=== PATIENT | male | born 1955 | race Caucasian/White ===

== ENCOUNTER 2018-11-03 10:13 | Emergency (ER) | payer OTHER ==
--- OUTSIDE RECORDS SUMMARY | 2018-11-03 10:16 | XMS REPORT | Clinical Summary ---
:1955 Author Organization [facility] Address [address] [place] [address] Care Team Providers Name Role Phone Unavailable Primary Care Provider Unavailable Allergies Not on File Medications Not on file Active Problems Not on file Social History Tobacco Use Types Packs/Day Years Used Date Never Assessed Sex Assigned at Date Recorded Not on file Job Start Date Occupation Industry Not on file Not on file Not on file Travel History Travel Start Travel End No recent travel history available. Last Filed Vital Signs Not on file Plan of Treatment Date Type Specialty Care Team Description 11/04/2018 Office Visit Hepatology Carlotta Mario MD [id number] [place] [address] Results Not on fileafter 11/02/2017 Insurance Payer Benefit Plan / Group Subscriber ID Type Phone Address MEDICARE MEDICARE A B xxxxxxxxxxx Medicare MCR [employer]ETNA [facility] xxxxxxxxx SUPPLEMENT/INDIVIDUAL (Home) [place] [address]
--- NOTE | 2018-11-03 11:23 | ER ---
Nurse's Notes [facility] Name: Mary Young Age: 63 yrs Sex: Male : 1955 Arrival Date: 11/03/2018 Time: 10:16 Bed 3 Private MD: Diagnosis: Cardiac arrest Presentation: 11/03 10:11 Care prior to arrival: Oral intubation, CPR via thumper performed by EMS was ch defibrillated and is still in progress Placed on backboard. Medication(s) given: EPINEPHRINE X8 IV initiated. IO Oxygen administered. via AMBU bag. Compressions began prior to arrival. 10:28 Presenting complaint: EMS states: toned out for possible seizure, pt had no pulse and ch no respirations. called 911 at 0916 when pt laid down on the bed and then had a "stroke or a seizure". pt intubated, given 8 rounds of epi, 3 shocks, and is currently in asystole. 10:28 Acuity: JAE 1 iw 11:06 Method Of Arrival: EMS: [facility] 11:06 Acuity: JAE 1 11:10 Transition of care: patient was not received from another setting of care. Onset of ch symptoms was November 03, 2018 at 09:10. Triage Assessment: 10:35 General: Appears cpr in progress. Behavior is unresponsive. Pain: Unable to use pain ch scale. Patient is intubated. Patient is unresponsive. Historical: - Allergies: 10:17 Keflex; ss 10:34 Cephalexin Monohydrate; ch - Home Meds: 10:17 spironolactone 50 mg Oral tab 1 tab once daily [Active]; pantoprazole 40 mg Oral TbEC 1 ss tab once daily [Active]; bumetanide 2 mg Oral tab [Active]; montelukast oral oral [Active]; Advair Diskus Inhl [Active]; Prednisone Oral [Active]; - PMHx: 10:34 esophogeal varicies; pulmonary hypertension; liver failure; "lung issues"; ch 10:42 CHF; ch - PSHx: 10:17 Knee surgery; ss - Immunization history:: Adult Immunizations up to date. - Social history:: Smoking status: Patient/guardian denies using tobacco. Screenin:11 Abuse screen: Denies threats or abuse. Denies injuries from another. Nutritional ch screening: No deficits noted. 10:11 Tuberculosis screening: No symptoms or risk factors identified. Fall Risk None ch identified. Assessment: 10:11 CPR assessment: unresponsive, no respiratory effort, intubated, Ambu ventilation, ch cyanotic, pulses absent w/ compressions. Cardiac rhythm is asystole. 10:12 Respiratory: Airway is patent Respiratory pattern is symmetrical, PT IS INTUBATED, ch CLEAR LUNG SOUNDS BILATERALLY, NO RESISTANCE WITH BAGGING. GI: Abdomen is round obese. : PT HAS URINATED AND DEFECATED ON HIMSELF. Derm: Skin has skin tears on PT HAS MULTIPLE SKIN TEARS TO JON ARMS, CHEST, AND FEW ON LEGS. STATES PT SKIN IS VERY SENSITIVE Skin is clammy, Skin is dusky, pale. 10:12 General: Appears UNRESPONSIVE, CPR IN PROGRESS. . Musculoskeletal: PT HAS NO ch SPONTANEOUS MOVEMENT. 10:16 Reassessment: Patient appears in no apparent distress at this time. PT GIVEN EPI AT ch 1014, PT STILL ASYSTOLE AT RHYTHM CHECK. 10:16 Reassessment: PT BGL 46 AT 1016, GIVEN 50MG D50 AT 1016. ch 10:16 Cardiovascular: Rhythm is asystole. ch 10:18 Reassessment: PT GIVEN EPI AT 1017, STILL ASYSTOLE, NO PULSE. ch 10:19 Reassessment: DR SHEPPARD PRONOUNCES PT, FAMILY AT BEDSIDE. VERB UNDERSTANDING. ch 10:49 Reassessment: LIFE GIFT COORDINATOR CALLED, LUIS GUADARRAMA. ch 11:10 Reassessment: HEALTH TECH AT BEDSIDE, NO AUTOPSY ORDERED. PT TO BE RELEASED TO LONGTERM. ch 11:21 Reassessment: UNDERTAKER FROM [facility] HERE TO DEPARTMENT CLINICIAN PATIENT, AWAITING LAST FAMILY MEMBERS ARRIVAL, FAMILY MEMBER IN ROUTE. 16:18 Reassessment: Dwayne with [facility], called. confirmed pt history for possible cornea iw donation candidacy. Vital Signs: 10:11 Resp 20 A; Temp 96.2(R); Pulse Ox 99% on ETT ambu; ch 10:14 Pulse 0; Resp 20; Pulse Ox 95% on ETT ambu; ch 10:19 BP 0 / 0; Pulse 0; Resp 0; Temp 96.2(R); Pulse Ox 0% ; ch 10:11 cpr in progress, pt is asystole Vitals: 10:12 Cardiac Rhythm Assessment Asytole. ch 10:12 Cardiac Rhythm Assessment Asytole. ch 10:14 Cardiac Rhythm Assessment Asytole. ch 10:18 Cardiac Rhythm Assessment Asytole. ch 10:19 Cardiac Rhythm Assessment Asytole. ED Course: 10:11 Arm band placed on left wrist. Patient placed in an exam room, on a stretcher, on ch oxygen, on air traffic control specialist, on pulse oximetry. EKG completed in triage. Results shown to MD. EKG completed in triage. Results shown to MD. Family accompanied patient. 10:11 Patient has correct armband on for positive identification. Bed in low position. Adult ch w/ patient. CPR IN PROGRESS. floor director on. Pulse ox on. NIBP on. 10:11 No provider procedures requiring assistance completed. Maintain EMS IV. Dressing ch intact. Good blood return noted. Site clean \\T\\ dry. Gauge \\T\\ site: IO TO R TIBIA, FLUID FLOWS FREELY. 10:11 O2 via AMBU BAG. ch 10:16 Patient arrived in ED. ss 10:24 Basilio Sheppard MD is Attending Physician. ps1 10:28 Soha Panda, AMBROCIO is Primary Nurse. ch 10:32 notified vanessa walker to contact architect manager transportation director. bd 11:02 Patient has correct armband on for positive identification. Bed in low position. ch 11:06 Triage completed. iw 11:22 Basilio Sheppard MD is Pronouncing Provider. ch Administered Medications: 10:14 Drug: EPINEPHrine 0.1mg/mL 1:10,000 1 mg Route: IVP; Site: Other; ch 11:04 Follow up: Response: No change in condition ch 10:16 Drug: D50W 50 ml Route: IVP; Site: Other; ch 10:19 Follow up: Response: No adverse reaction; No change in condition ch 10:17 Drug: EPINEPHrine 0.1mg/mL 1:10,000 1 mg Route: IVP; Site: Other; ch 11:05 Follow up: Response: No adverse reaction; No change in condition Outcome: 10:19 Outcome Patient ch 10:19 Patient : Time of 10:19 Pronounced by Basilio Sheppard MD Body to ch home. 10:19 Condition: 10:19 Critical Care visit due to CPR. ch 12:09 Patient left the ED. iw Signatures: Dirrim, Angelina bd Panda, Soha, RN RN Radha Richards RN RN iw Smirch, Shelby, RN RN ss Singer, Phillip, MD MD ps1
--- NOTE | 2018-11-03 11:23 | EDPHYS ---
Physician Documentation [facility] Name: Mary Young Age: 63 yrs Sex: Male : 1955 Arrival Date: 11/03/2018 Time: 10:16 Bed 3 Private MD: ED Physician Basilio Sheppard HPI: 11/03 10:25 This 63 yrs old Male presents to ER via EMS with complaints of full arrest. 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 He had 3 defibrillation events for rhythm changes. Total down time of 55 minutes LABORATORY CHIEF. Reported seizure activity prior to unresponsiveness. . Historical: - Allergies: 10:17 Keflex; ss 10:34 Cephalexin Monohydrate; ch - Home Meds: 10:17 spironolactone 50 mg Oral tab 1 tab once daily [Active]; pantoprazole 40 mg Oral TbEC 1 ss tab once daily [Active]; bumetanide 2 mg Oral tab [Active]; montelukast oral oral [Active]; Advair Diskus Inhl [Active]; Prednisone Oral [Active]; - PMHx: 10:34 esophogeal varicies; pulmonary hypertension; liver failure; "lung issues"; ch 10:42 CHF; ch - PSHx: 10:17 Knee surgery; ss - Immunization history:: Adult Immunizations up to date. - Social history:: Smoking status: Patient/guardian denies using tobacco. ROS: 10:25 Unable to obtain ROS due to CPR active. Unresponsive and pulseless.. ps1 Exam: 10:25 Constitutional: The patient appears comatose. ps1 10:25 Head/face: 10:25 Eyes: Pupils: are fixed and dilated. 10:25 ENT: Mouth: intubated with tube vogt in place. . 10:25 Chest/axilla: Inspection: ecchymosis, that is moderate, DESTINY device providing CPR. 10:25 Cardiovascular: Rate: asystole on monitor and POCUS ultrasound demonstrated no intrinsic cardiac motion. . 10:25 Respiratory: no spontaneous breathing without mechanical ventilation. . 10:25 Abdomen/GI: Inspection: distension, that is moderate. 10:25 Musculoskeletal/extremity: Extremities: grossly normal except: noted in the right leg: I/O in tibia. 10:25 Neuro: Orientation: unable to test, areflexic.. Vital Signs: 10:11 Resp 20 A; Temp 96.2(R); Pulse Ox 99% on ETT ambu; ch 10:14 Pulse 0; Resp 20; Pulse Ox 95% on ETT ambu; ch 10:19 BP 0 / 0; Pulse 0; Resp 0; Temp 96.2(R); Pulse Ox 0% ; ch 10:11 cpr in progress, pt is asystole MDM: 10:31 Data reviewed: vital signs, nurses notes. ED course: patient arrived in full arrest ps1 with 55 min OOH time. Glucose was given in ED as well as 2 doses of epinephrine. Discussed with in room realistic outcomes of continuing care. We performed POCUS which demonstrated no intrinsic cardiac activity and TOD was pronounced at 1019 by myself. . 11:24 Patient medically screened. ps1 11/03 11:41 Order name: glucometer results - FOR PT WITH NO ID sg Administered Medications: 10:14 Drug: EPINEPHrine 0.1mg/mL 1:10,000 1 mg Route: IVP; Site: Other; 11:04 Follow up: Response: No change in condition ch 10:16 Drug: D50W 50 ml Route: IVP; Site: Other; ch 10:19 Follow up: Response: No adverse reaction; No change in condition ch 10:17 Drug: EPINEPHrine 0.1mg/mL 1:10,000 1 mg Route: IVP; Site: Other; ch 11:05 Follow up: Response: No adverse reaction; No change in condition Disposition: 10:31 . ps1 10:35 Chart complete. ps1 Disposition: Patient pronounced on 11/03/18 10:19 by Basilio Sheppard. Impression: Cardiac arrest. Critical care time excluding procedures: 10:31 Critical care time: Bedside Care: 35 minutes. Total time: 35 minutes ps1 Signatures: Dispatcher [employer] EDMS Soha Panda RN RN Radha Gillis RN RN Marta Ennis RN RN Basilio Sheppard MD MD ps1 Corrections: (The following items were deleted from the chart) 12:09 11:23 11/03/2018 11:23 Patient pronounced on 11/03/2018 at 10:19 by Basilio Sheppard. iw Impression: Cardiac arrest. ch
[2018-11-03 12:19] VITALS: BP 0/0; TEMP 96.2; O2SAT 0
== END 2018-11-03 12:09 | disposition expired ==
LOC: ER 10:13
DX: I46.9 Cardiac arrest, cause unspecified (principal)
CPT/HCPCS: 36415; 82962; 92950; 96374; 96375; 99285